=== PATIENT | female | born 1970 | race Caucasian/White ===

== ENCOUNTER 2017-07-29 19:10 | Emergency (ER) | payer OTHER, MEDICAID ==
[2017-07-29 19:30] VITALS: BMI 27.1
--- NOTE | 2017-07-29 20:14 | DR.GENAD ---
HPI - PCP Primary Care Physician: yovany - Complaint/Symptoms Chief Complaint:: chest started feeling funny in the middle of the week. felt like a pinch in mid sternum area that wouldn't let go for awhile. this comes and go's. patient has gradually gotten weaker since the middle of the weak. cannot hold on to things, has very little function of hands. about an hour ago patient nodded off like she fainted and come right back around. patient has had a hard time hearing. Self Treatment fo Chief Complaint: patient started on a new med 07/28/17 loratadine. took today at lunch time . 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 - Family History History of Family Medical Conditions: Yes Family Medical History: Diabetes Mellitus, Cancer, [place], Coronary Artery Disease, Heart Failure, Sudden Cardiac , Hypertension - Social History Does patient currently use any type of tobacco product: Yes Have you used tobacco products in the last 12 months: Yes Type of Tobacco Use: Cigarettes How many years tobacco product used: 30 Does any household member use tobacco: No Alcohol Use: None Do you use any recreational Drugs:: No Lives With: Significant Other Lives Where: Home - infectious screening In the last 2 months have you had wt loss of >10#?: NO Have you had fever, night sweats or hemotysis?: No Have you traveled outside the country in the last 6 months?: No Isolation: Standard ROS - Review of Systems Constitutional: No Symptoms Reported Eyes: No Symptoms Reported ENTM: No Symptoms Reported Respiratoy: No Symptoms Reported Cardiovascular: No Symptoms Reported Gastrointestinal/Abdominal: No Symptoms Reported Genitourinary: No Symptoms Reported Neurological: No Symptoms Reported Musculoskeletal: No Symptoms Reported Integumentary: No Symptoms Reported Hematologic/Lymphatic: No Symptoms Reported Endocrine: No Symptoms Reported, Intolerance to Cold Psychiatric: No Symptoms Reported All Other Systems: Reviewed and Negative PE - Vital Signs Vitals: Temperature 100.1 F Pulse Rate 104 Respiratory Rate 16 Blood Pressure 108/78 O2 Sat by Pulse Oximetry 90 - General General Appearance: Alert - Head Head Exam: Normal Inspection, Atraumatic - Eyes Eye exam: Normal Appearance, PERRL, EOMI - ENT ENT Exam: Normal Exam External Ear Exam: Normal External Inspection TM/Canal Exam: Bilateral Normal Nose Exam: Normal Nose Exam Mouth Exam: Normal Inspection Throat Exam: Normal Inspection - Neck Neck Exam: Normal Inspection, Full ROM - Chest Chest Inspection: Normal Inspection - Respiratory Respiratory Exam: Normal Lung Sounds Bilat Respiratory Exam: Bilateral Clear to Auscultation - Cardiovascular Cardiovascular Exam: Regular Rate, Normal Rhythm - Abdominal Exam Abdominal Exam: Normal Inspection Abdominal Tenderness: negative: RUQ, RLQ, LUQ, LLQ, Epigastrium, Suprapubic, Diffuse, Mild, Moderate, Severe, Other - Extremities Extremities Exam: Normal Inspection, Full ROM - Back Back Exam: Normal Inspection, Full ROM - Neurologic Neurological Exam: Alert, Oriented X3, CN II-XII Intact - Psychiatric Psychiatric Exam: Normal Affect - Skin Skin Exam: Warm, Dry, Intact Course - Reevaluation 1st: Improved ROR - Labs Reviewed Result Diagrams: 07/29/17 20:30 07/29/17 20:30 Laboratory: WBC 6.8 X10^3/uL (3.6-10.0) 07/29/17 20:30 RBC 4.55 X10^6/uL (3.5-5.4) 07/29/17 20:30 Hgb 14.1 g/dL (12.0-16.0) 07/29/17 20:30 Hct 41.8 % (36.0-47.0) 07/29/17 20:30 MCV 91.8 fL (80.0-100.0) 07/29/17 20:30 MCH 31.0 pg (27.0-34.0) 07/29/17 20:30 MCHC 33.8 g/dL (33.0-35.0) 07/29/17 20:30 RDW 14.8 % (11.6-16.5) 07/29/17 20:30 Plt Count 286 X10^3/uL (150.0-450.0) 07/29/17 20:30 MPV 8.3 fL (7.4-11.0) 07/29/17 20:30 Neut % 75.3 % (42.0-75.0) H 07/29/17 20:30 Lymph % 19.1 % (21.0-51.0) L 07/29/17 20:30 [place] % 4.2 % (0.0-13.0) 07/29/17 20:30 Eos % 0.1 % (0.9-2.9) L 07/29/17 20:30 Baso % 1.3 % (0.2-1.0) H 07/29/17 20:30 Neut # 5.1 x10^3/uL (2.2-4.8) H 07/29/17 20:30 Lymph # 1.3 X10^3/uL (1.3-2.9) 07/29/17 20:30 [place] # 0.3 x10^3/uL (0.3-0.8) 07/29/17 20:30 Eos # 0.0 x10^3/uL (0.0-0.2) 07/29/17 20:30 Baso # 0.1 X10^3/uL (0.0-0.1) 07/29/17 20:30 Absolute Nucleated RBC 0.0 /100WBC 07/29/17 20:30 Sample Site Lbra 07/29/17 20:17 ABG pH 7.360 (7.35-7.45) 07/29/17 20: ABG pCO2 38.0 mmHg (35.0-45.0) 07/29/17 20: ABG pO2 109.0 mmHg (80.0-100.0) H 07/29/17 20: ABG HCO3 21.5 mmol/L (22-26) L 07/29/17 20: ABG O2 Saturation 98.0 % (90-100) 07/29/17 20:17 ABG Base Excess -3.6 mmol/L (-2.0-2.0) L 07/29/17 20: Oniel Test Na 07/29/17 20: A-a Gradient 72.0 mmHg 07/29/17 20:17 FiO2 32.000 07/29/17 20:17 Blood Gas Comments Sharita abg well-mtf 07/29/17 20:17 Sodium 141 mmol/L (136-145) 07/29/17 20:30 Corrected Sodium TNP 07/29/17 20: Potassium 2.6 mmol/L (3.5-5.1) L* 07/29/17 20:30 Chloride 103 mmol/L (98-107) 07/29/17 20:30 Carbon Dioxide 23.3 mmol/L (21-32) 07/29/17 20:30 BUN 13 mg/dL (7-18) 07/29/17 20:30 Creatinine 0.82 mg/dL (0.55-1.02) 07/29/17 20:30 Est GFR (MDRD) Af Amer > 60 (>60) 07/29/17 20:30 Est GFR (MDRD) Non-Af > 60 (>60) 07/29/17 20:30 Glucose 73 mg/dL (65-99) 07/29/17 20:30 Calcium 8.8 mg/dL (8.5-10.1) 07/29/17 20:30 Corrected Calcium TNP 07/29/17 20:30 Total Bilirubin 0.20 mg/dL (0.2-1.0) 07/29/17 20:30 AST 28 Units/L (15-37) 07/29/17 20:30 ALT 12 Units/L (12-78) 07/29/17 20:30 Alkaline Phosphatase 84 Units/L (46-116) 07/29/17 20:30 Total Protein 7.2 g/dL (6.4-8.2) 07/29/17 20:30 Albumin 3.6 g/dL (3.4-5.0) 07/29/17 20:30 Globulin 3.6 g/dL (2.5-4.5) 07/29/17 20:30 Albumin/Globulin Ratio 1.0 Ratio (1.1-2.1) L 07/29/17 20:30 - XRAY XRAY Interpreted by: Radiologist (Chest: The heart size is normal, there are patchy right basilar opacities. The remainder or the lungs are clear. No significanrt) - Diagnosis Discharge Problem: Hypokalemia Pneumonia Qualifiers: Pneumonia type: due to unspecified organism Laterality: right Lung location: lower lobe of lung Qualified Code(s): J18.1 - Lobar pneumonia, unspecified organism - Discharge Plan Condition: Stable - Follow ups/Referrals Follow ups/Referrals: Felecia ERNST [Primary Care Provider] - 3 days - Instructions
[2017-07-29 20:37] LABS: BASOPHILS # (AUTO) 0.1 X10^3/uL (0.0-0.1); BASOPHILS % (AUTO) 1.3 % (0.2-1.0); EOSINOPHILS % (AUTO) 0.1 % (0.9-2.9); HEMATOCRIT 41.8 % (36.0-47.0); HEMOGLOBIN 14.1 g/dL (12.0-16.0); LYMPHOCYTES # (AUTO) 1.3 X10^3/uL (1.3-2.9); LYMPHOCYTES % (AUTO) 19.1 % (21.0-51.0); MEAN CORPUSCULAR HGB CONC 33.8 g/dL (33.0-35.0); MEAN CORPUSCULAR VOLUME 91.8 fL (80.0-100.0); MEAN PLATELET VOLUME 8.3 fL (7.4-11.0); MONOCYTES # (AUTO) 0.3 x10^3/uL (0.3-0.8); MONOCYTES % (AUTO) 4.2 % (0.0-13.0); NEUTROPHILS # (AUTO) 5.1 x10^3/uL (2.2-4.8); NEUTROPHILS % (AUTO) 75.3 % (42.0-75.0); PLATELET COUNT 286 X10^3/uL (150.0-450.0); RED BLOOD COUNT 4.55 X10^6/uL (3.5-5.4); RED CELL DISTRIBUTION WIDTH 14.8 % (11.6-16.5); WHITE BLOOD COUNT 6.8 X10^3/uL (3.6-10.0)
[2017-07-29 20:37] LABS: ABG BASE EXCESS -3.6 mmol/L (-2.0-2.0); ABG HCO3 21.5 mmol/L (22-26)
[2017-07-29 20:44] LABS: BLOOD UREA NITROGEN 13 mg/dL (7-18); CALCIUM 8.8 mg/dL (8.5-10.1); CARBON DIOXIDE 23.3 mmol/L (21-32); CHLORIDE 103 mmol/L (98-107); CREATININE 0.82 mg/dL (0.55-1.02); SODIUM 141 mmol/L (136-145); eGFR BLACK RACES > 60 (>60); eGFR NON BLACK RACES > 60 (>60)
[2017-07-29 20:51] LABS: ALANINE AMINOTRANSFERASE 12 Units/L (12-78); ALBUMIN 3.6 g/dL (3.4-5.0); ALKALINE PHOSPHATASE 84 Units/L (46-116); ASPARTATE AMINO TRANSFERASE 28 Units/L (15-37); TOTAL PROTEIN 7.2 g/dL (6.4-8.2)
[2017-07-29] MEDS ORDERED: K-LYTE EFFERVESCENT ONE (21:32)
[2017-07-29] MEDS ORDERED: K-LYTE EFFERVESCENT PO SCH (21:36)
--- NOTE | 2017-07-29 21:47 | RAD ---
Chest, one-view Indication: Hypoxic Comparison: 03/05/2016 Findings: The heart size is normal. There are patchy right basilar opacities. The remainder of the miguel ángel ngs are clear. No significant pleural effusion or pneumothorax is identified. No acute osseous abnorm ality is seen. Impression: Patchy right basilar opacities, suspicious for pneumonia. Clinical correlation and follow-up to compl ete resolution recommended. Reported By:
[2017-07-29] MEDS ORDERED: K-DUR TAB 20 MEQ PO ONE (23:08)
[2017-07-29] MEDS ORDERED: K-DUR TAB 20 MEQ PO SCH (23:19)
[2017-07-30 04:11] VITALS: BP 116/72
[2017-07-30] MEDS ORDERED: K-DUR TAB 20 MEQ PO SCH (09:00)
[2017-07-30] MEDS ORDERED: K-LYTE EFFERVESCENT PO SCH (09:00)
== END 2017-07-29 23:33 | disposition home or self-care (01) ==
LOC: ER 19:37
DX: J18.1 Lobar pneumonia, unspecified organism (principal); E87.6 Hypokalemia
CPT/HCPCS: 36415; 36600; 71010; 80053; 82803; 85025; 99283

== ENCOUNTER → 2017-09-15 | Outpatient (CLI) | payer OTHER, MEDICAID ==
[2017-07-30 04:11] VITALS: BP 116/72
[~2017-09-15] MED LIST: NS 100 ML IV 100 ML IV ONE
--- NOTE | 2017-09-15 12:38 | RAD ---
HISTORY: Lower abdominal pain. Hypokalemia. Back pain. Study: Acute abdominal series: PA chest with supine and upright abdominal views submitted. Comparison: 03/05/2016, 07/29/2017 Findings: The lungs are clear. The heart size is normal. No acute bony abnormalities are identified. Examination of the abdomen reveals scattered large small bowel gas. No evidence of bowel obstruction or pneumoperitoneum is noted. Oral contrast is noted within the small bowel and colon from CT scan done the same date. This partially obscures bony structures and moderately obscures the kidneys. Sm all calcifications present in the anatomic pelvis felt represent phleboliths. No definite acute bony abnormalities are identified. IMPRESSION: 1. No radiographic evidence of acute cardiopulmonary disease or significant change is noted when com pared to the prior acute abdominal series 2. I see no evidence of bowel obstruction or pneumoperitoneum. Reported By:
--- NOTE | 2017-09-15 12:44 | CT ---
CT abdomen and pelvis with contrast Indication: Lower abdominal and back pain Technique: Helical CT images of the abdomen and pelvis were obtained with IV contrast. Reformatted im ages in the coronal and sagittal planes were also generated for review. Comparison: None Findings: Visualized lung bases are clear. Right L5 pars defect is noted without significant associat ed spondylolisthesis. No aggressive osseous lesions are identified. The liver, gallbladder, spleen, pancreas, adrenals and kidneys are unremarkable. There is a small sliding hiatal hernia with mild thickening of the distal esophagus. There is mild mu ral thickening and mucosal enhancement of the gastric antrum without discrete ulcer or mass identifie d. There is mild colonic diverticulosis without CT evidence of acute diverticulitis. The appendix is normal. No bowel obstruction identified. The abdominal aorta is mildly calcified without aneurysm. The urinary bladder is normal. The uterus a nd adnexa are grossly within normal limits. No free air, free fluid or lymphadenopathy is identified. Impression: Mural thickening and mucosal enhancement of the gastric antrum, suggestive for gastritis. Underlying neoplasm is not excluded and endoscopy should be considered for further evaluation, as clinically war ranted. Small hiatal hernia with mild thickening of the distal esophagus. This can also be further evaluated with endoscopy. Please see above report for additional incidental findings. Reported By:
== END ==
LOC: RAD 10:42
PROVIDERS: ATTEND Psychiatry & Neurology Neurology
DX: E87.6 Hypokalemia (principal); Z87.01 Personal history of pneumonia (recurrent); E28.319 Asymptomatic premature menopause; I10 Essential (primary) hypertension; R10.84 Generalized abdominal pain; R10.813 Right lower quadrant abdominal tenderness
CPT/HCPCS: 74022; 74178; A4222

== ENCOUNTER 2017-09-21 10:13 | Emergency (ER) | payer OTHER, MEDICAID ==
--- NOTE | 2017-09-21 10:24 | DR.GENAD ---
HPI - PCP Primary Care Physician: Lisa - Complaint/Symptoms Chief Complaint Doctors Comments: Patient presented to the ED for evaluation of patient who had fallen off the commode according family member. She did not hit her head, there was no emesis on the floor, there was no abnormal movements. Patient has been unresponsive since arrival. Primary survey is without evidence of trauma. With stimulation patient states that she went to urinate and fell when trying to pull up clothing. She admits to taking her nerves medication ( xanax) prior to bedtime. 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 - Family History Family Medical History: Diabetes Mellitus, Cancer, [place], Coronary Artery Disease, Heart Failure, Sudden Cardiac , Hypertension - Social History Do you use any recreational Drugs:: No ROS - Review of Systems Constitutional: See HPI Eyes: No Symptoms Reported ENTM: No Symptoms Reported Respiratoy: No Symptoms Reported Cardiovascular: No Symptoms Reported Gastrointestinal/Abdominal: No Symptoms Reported Genitourinary: No Symptoms Reported Neurological: Other (altered mental state) Musculoskeletal: No Symptoms Reported Integumentary: No Symptoms Reported Hematologic/Lymphatic: No Symptoms Reported Endocrine: No Symptoms Reported Psychiatric: No Symptoms Reported All Other Systems: Reviewed and Negative Unable to Obtain Due To: Altered mental status PE - Vital Signs Vitals: Temperature 97.4 F Pulse Rate [Right Brachial] 86 Pulse Rate 87 Respiratory Rate 16 Blood Pressure [Right Arm] 104/59 Blood Pressure [Left Arm] 116/72 Blood Pressure 108/67 O2 Sat by Pulse Oximetry 95 - General General Appearance: Lethargic - Head Head Exam: Normal Inspection, Atraumatic - Eyes Eye exam: Normal Appearance, PERRL, EOMI, Mydrasis - ENT ENT Exam: Normal Oropharynx External Ear Exam: Normal External Inspection TM/Canal Exam: Bilateral Normal Nose Exam: Normal Nose Exam Mouth Exam: Normal Inspection Throat Exam: Normal Inspection - Neck Neck Exam: Normal Inspection - Chest Chest Inspection: Normal Inspection - Respiratory Respiratory Exam: Normal Lung Sounds Bilat Respiratory Exam: Bilateral Clear to Auscultation - Cardiovascular Cardiovascular Exam: Regular Rate, Normal Rhythm - Abdominal Exam Abdominal Exam: Normal Inspection Abdominal Tenderness: negative: RUQ, RLQ, LUQ, LLQ, Epigastrium, Suprapubic, Diffuse, Mild, Moderate, Severe, Other - Extremities Extremities Exam: Normal Inspection - Back Back Exam: Normal Inspection - Neurologic Neurological Exam: Alert, Oriented X3, CN II-XII Intact - Psychiatric Psychiatric Exam: Depressed - Skin Skin Exam: Warm, Dry, Intact Course - Reevaluation 1st: Unchanged - Consultation Called: 13:50 (Dr Frazier agreed to admit for further evaluation) ROR - Labs Reviewed Result Diagrams: 09/21/17 11:10 09/21/17 11:10 Laboratory: WBC 6.4 X10^3/uL (3.6-10.0) 09/21/17 11:10 RBC 4.54 X10^6/uL (3.5-5.4) 09/21/17 11:10 Hgb 13.9 g/dL (12.0-16.0) 09/21/17 11:10 Hct 42.1 % (36.0-47.0) 09/21/17 11:10 MCV 92.9 fL (80.0-100.0) 09/21/17 11:10 MCH 30.7 pg (27.0-34.0) 09/21/17 11:10 MCHC 33.0 g/dL (33.0-35.0) 09/21/17 11:10 RDW 14.8 % (11.6-16.5) 09/21/17 11:10 Plt Count 341 X10^3/uL (150.0-450.0) 09/21/17 11:10 MPV 8.3 fL (7.4-11.0) 09/21/17 11:10 Neut % 73.1 % (42.0-75.0) 09/21/17 11:10 Lymph % 20.4 % (21.0-51.0) L 09/21/17 11:10 [place] % 5.5 % (0.0-13.0) 09/21/17 11:10 Eos % 0.3 % (0.9-2.9) L 09/21/17 11:10 Baso % 0.7 % (0.2-1.0) 09/21/17 11:10 Neut # 4.7 x10^3/uL (2.2-4.8) 09/21/17 11:10 Lymph # 1.3 X10^3/uL (1.3-2.9) 09/21/17 11:10 [place] # 0.3 x10^3/uL (0.3-0.8) 09/21/17 11:10 Eos # 0.0 x10^3/uL (0.0-0.2) 09/21/17 11:10 Baso # 0.0 X10^3/uL (0.0-0.1) 09/21/17 11:10 Absolute Nucleated RBC 0.0 /100WBC 09/21/17 11:10 Sample Site Rra 09/21/17 13:10 ABG pH 7.350 (7.35-7.45) 09/21/17 13:10 ABG pCO2 41.0 mmHg (35.0-45.0) 09/21/17 13:10 ABG pO2 87.0 mmHg (80.0-100.0) 09/21/17 13:10 ABG HCO3 22.6 mmol/L (22-26) 09/21/17 13:10 ABG O2 Saturation 96.0 % (90-100) 09/21/17 13:10 ABG Base Excess -2.9 mmol/L (-2.0-2.0) L 09/21/17 13:10 Oniel Test Pos 09/21/17 13:10 A-a Gradient 61.0 mmHg 09/21/17 13:10 FiO2 28.000 09/21/17 13:10 Blood Gas Comments Sharita well cs 09/21/17 13:10 Sodium 141 mmol/L (136-145) 09/21/17 11:10 Corrected Sodium TNP 09/21/17 11:10 Potassium 3.4 mmol/L (3.5-5.1) L 09/21/17 11:10 Chloride 106 mmol/L (98-107) 09/21/17 11:10 Carbon Dioxide 22.5 mmol/L (21-32) 09/21/17 11:10 BUN 10 mg/dL (7-18) 09/21/17 11:10 Creatinine 0.62 mg/dL (0.55-1.02) 09/21/17 11:10 Est GFR (MDRD) Af Amer > 60 (>60) 09/21/17 11:10 Est GFR (MDRD) Non-Af > 60 (>60) 09/21/17 11:10 Glucose 89 mg/dL (65-99) 09/21/17 11:10 POC Glucose (mg/dL) 82 mg/dL (65-99) 09/21/17 13:00 Calcium 8.1 mg/dL (8.5-10.1) L 09/21/17 11:10 Corrected Calcium TNP 09/21/17 11:10 Total Bilirubin 0.40 mg/dL (0.2-1.0) 09/21/17 11:10 AST 15 Units/L (15-37) 09/21/17 11:10 ALT 7 Units/L (12-78) L 09/21/17 11:10 Alkaline Phosphatase 67 Units/L (46-116) 09/21/17 11:10 Creatine Kinase 47 Units/L (26-192) 09/21/17 11:10 CK-MB (CK-2) < 1.0 ng/mL (0-4.0) 09/21/17 11:10 CK/CKMB % Calc 2.1 % (<4) 09/21/17 11:10 Troponin I < 0.02 ng/mL (0-1.5) 09/21/17 11:10 Total Protein 7.2 g/dL (6.4-8.2) 09/21/17 11:10 Albumin 3.7 g/dL (3.4-5.0) 09/21/17 11:10 Globulin 3.5 g/dL (2.5-4.5) 09/21/17 11:10 Albumin/Globulin Ratio 1.1 Ratio (1.1-2.1) 09/21/17 11:10 Specimen Type Catherized urine 09/21/17 11:25 Urine Color Yellow (YELLOW) 09/21/17 11:25 Urine Appearance Clear (CLEAR) 09/21/17 11:25 Urine pH 5.0 (5.0 - 8.0) 09/21/17 11:25 Ur Specific [place] 1.015 (1.000-1.030) 09/21/17 11:25 Urine Protein 1+ (NEGATIVE) 09/21/17 11:25 Urine Glucose (UA) Negative (NEGATIVE) 09/21/17 11:25 Urine Ketones 3+ (NEGATIVE) 09/21/17 11:25 Urine Occult Blood Negative (NEGATIVE) 09/21/17 11:25 Urine Nitrite Negative (NEGATIVE) 09/21/17 11:25 Urine Bilirubin Negative (NEGATIVE) 09/21/17 11:25 Urine Urobilinogen Normal (NORMAL) 09/21/17 11:25 Ur Leukocyte Esterase Negative (NEGATIVE) 09/21/17 11:25 Urine RBC 0-1 /HPF (NEGATIVE) 09/21/17 11:25 Urine WBC 0-1 /HPF (NEGATIVE) 09/21/17 11:25 Ur Squamous Epith Cells Few /HPF (NEGATIVE) 09/21/17 11:25 Urine Bacteria Trace /HPF (NEGATIVE) 09/21/17 11:25 Ur Culture Indicated? No/not indicated 09/21/17 11:25 Urine Opiates Screen Negative (NEG=<300) 09/21/17 11:25 Urine Methadone Screen Negative (NEG=<300) 09/21/17 11:25 Ur Barbiturates Screen Negative (NEG=<200) 09/21/17 11:25 Ur Phencyclidine Scrn Negative (NEG=<25) 09/21/17 11:25 Ur Amphetamines Screen Negative (NEG=<1000) 09/21/17 11:25 U Benzodiazepines Scrn Positive (NEG=<200) A 09/21/17 11:25 Urine Cocaine Screen Negative (NEG=<300) 09/21/17 11:25 U Marijuana (THC) Screen Negative (NEG=<50) 09/21/17 11:25 - XRAY XRAY Interpreted by: Radiologist (Brain CT: No acute abnormality) - Diagnosis Discharge Problem: Altered mental state Qualifiers: Altered mental status type: stupor Qualified Code(s): R40.1 - Stupor - Discharge Plan Condition: Stable - Follow ups/Referrals Follow ups/Referrals: Felecia ERNST [Primary Care Provider] - 3 days - Instructions
[2017-09-21] MEDS ORDERED: NARCAN INJ IVP ONE (10:35)
[2017-09-21] MEDS: NS 1000 ML 1,000 ML IV SCH (10:53)
[2017-09-21] MEDS ORDERED: NARCAN INJ ONE (10:56)
--- NOTE | 2017-09-21 11:05 | CT ---
History: Syncope this morning with altered mental status Study: CT head without contrast. Sagittal and coronal reformations were provided. Comparison: None Findings: The ventricles and sulci are normal in size and configuration without mass effect. There is no intracranial hemorrhage or mass or edema or subdural collection of fluid. The calvarium is intact . The paranasal sinuses and mastoid sinuses are clear. Impression: No evidence for acute intracranial disease Reported By:
[2017-09-21 11:26] LABS: BASOPHILS % (AUTO) 0.7 % (0.2-1.0); EOSINOPHILS % (AUTO) 0.3 % (0.9-2.9); HEMATOCRIT 42.1 % (36.0-47.0); HEMOGLOBIN 13.9 g/dL (12.0-16.0); LYMPHOCYTES # (AUTO) 1.3 X10^3/uL (1.3-2.9); LYMPHOCYTES % (AUTO) 20.4 % (21.0-51.0); MEAN CORPUSCULAR HEMOGLOBIN 30.7 pg (27.0-34.0); MEAN CORPUSCULAR VOLUME 92.9 fL (80.0-100.0); MEAN PLATELET VOLUME 8.3 fL (7.4-11.0); MONOCYTES # (AUTO) 0.3 x10^3/uL (0.3-0.8); MONOCYTES % (AUTO) 5.5 % (0.0-13.0); NEUTROPHILS # (AUTO) 4.7 x10^3/uL (2.2-4.8); NEUTROPHILS % (AUTO) 73.1 % (42.0-75.0); PLATELET COUNT 341 X10^3/uL (150.0-450.0); RED BLOOD COUNT 4.54 X10^6/uL (3.5-5.4); RED CELL DISTRIBUTION WIDTH 14.8 % (11.6-16.5); WHITE BLOOD COUNT 6.4 X10^3/uL (3.6-10.0)
[2017-09-21 11:35] LABS: ALANINE AMINOTRANSFERASE 7 Units/L (12-78); ALBUMIN 3.7 g/dL (3.4-5.0); ALKALINE PHOSPHATASE 67 Units/L (46-116); ASPARTATE AMINO TRANSFERASE 15 Units/L (15-37); BLOOD UREA NITROGEN 10 mg/dL (7-18); CALCIUM 8.1 mg/dL (8.5-10.1); CARBON DIOXIDE 22.5 mmol/L (21-32); CHLORIDE 106 mmol/L (98-107); CREATININE 0.62 mg/dL (0.55-1.02); SODIUM 141 mmol/L (136-145); TOTAL PROTEIN 7.2 g/dL (6.4-8.2); eGFR BLACK RACES > 60 (>60); eGFR NON BLACK RACES > 60 (>60)
[2017-09-21 11:37] LABS: BILIRUBIN,URINE NEGATIVE (NEGATIVE); BLOOD/HEMOGLOBIN,URINE NEGATIVE (NEGATIVE); GLUCOSE, URINE NEGATIVE (NEGATIVE); KETONES,URINE 3+ (NEGATIVE); LEUKOCYTE ESTERASE ,URINE NEGATIVE (NEGATIVE); NITRITES,URINE NEGATIVE (NEGATIVE); PROTEIN,URINE 1+ (NEGATIVE); UROBILINOGEN,URINE NORMAL (NORMAL)
[2017-09-21 11:48] LABS: APPEARANCE,URINE CLEAR (CLEAR); BACTERIA,URINE TRACE /HPF (NEGATIVE); COLOR,URINE YELLOW (YELLOW); RBC,URINE 0-1 /HPF (NEGATIVE); SQUAMOUS EPITHELIAL CELL,UR FEW /HPF (NEGATIVE)
[2017-09-21 13:17] LABS: ABG BASE EXCESS -2.9 mmol/L (-2.0-2.0); ABG HCO3 22.6 mmol/L (22-26)
[2017-09-21 13:18] LABS: ABG ALLEN TEST POS
[2017-09-21 13:25] LABS: CKMB % 2.1 % (<4); CREATINE KINASE 47 Units/L (26-192); CREATINE KINASE MB < 1.0 ng/mL (0-4.0); TROPONIN I < 0.02 ng/mL (0-1.5)
[2017-09-21] MEDS ORDERED: ROMAZICON INJ 0.5 MG IVP ONE ×2 (13:51→14:05)
[2017-09-21] MEDS: NS 1000 ML 1,000 ML with POTASSIUM CHLORIDE INJ 20 MEQ VIAL 20 MEQ IV SCH ×4 (15:18→23:40)
[2017-09-21 17:03] VITALS: BMI 23.5
[2017-09-22] MEDS: NS 1000 ML 1,000 ML IV SCH ×2 (05:43→06:41)
[2017-09-22 06:18] LABS: BASOPHILS % (AUTO) 0.6 % (0.2-1.0); EOSINOPHILS % (AUTO) 0.9 % (0.9-2.9); HEMATOCRIT 37.1 % (36.0-47.0); HEMOGLOBIN 12.3 g/dL (12.0-16.0); LYMPHOCYTES # (AUTO) 2.3 X10^3/uL (1.3-2.9); LYMPHOCYTES % (AUTO) 48.8 % (21.0-51.0); MEAN CORPUSCULAR HEMOGLOBIN 30.9 pg (27.0-34.0); MEAN CORPUSCULAR HGB CONC 33.1 g/dL (33.0-35.0); MEAN CORPUSCULAR VOLUME 93.3 fL (80.0-100.0); MEAN PLATELET VOLUME 8.4 fL (7.4-11.0); MONOCYTES # (AUTO) 0.4 x10^3/uL (0.3-0.8); MONOCYTES % (AUTO) 8.7 % (0.0-13.0); PLATELET COUNT 259 X10^3/uL (150.0-450.0); RED BLOOD COUNT 3.98 X10^6/uL (3.5-5.4); RED CELL DISTRIBUTION WIDTH 14.8 % (11.6-16.5); WHITE BLOOD COUNT 4.8 X10^3/uL (3.6-10.0)
[2017-09-22 06:41] LABS: ALANINE AMINOTRANSFERASE 11 Units/L (12-78); ALBUMIN 2.8 g/dL (3.4-5.0); ALKALINE PHOSPHATASE 45 Units/L (46-116); ASPARTATE AMINO TRANSFERASE 15 Units/L (15-37); BLOOD UREA NITROGEN 7 mg/dL (7-18); CALCIUM 7.9 mg/dL (8.5-10.1); CARBON DIOXIDE 23.7 mmol/L (21-32); CHLORIDE 110 mmol/L (98-107); COR CA(FOR HYPOALB) 8.9 mg/dL (8.5-10.1); COR NA(FOR HYPERGLY) 143 mmol/L (136-145); CREATININE 0.61 mg/dL (0.55-1.02); SODIUM 143 mmol/L (136-145); TOTAL PROTEIN 5.5 g/dL (6.4-8.2); eGFR BLACK RACES > 60 (>60); eGFR NON BLACK RACES > 60 (>60)
[2017-09-22] MEDS ORDERED: NORVASC TAB 10 MG PO SCH (09:00)
[2017-09-22] MEDS ORDERED: NexIUM PO SCH (09:00)
[2017-09-22 12:12] VITALS: BP 125/58
== END 2017-09-22 14:25 | disposition home or self-care (01) | DRG 81 ==
LOC: ER 10:17 → OBS 14:17
PROVIDERS: ADMIT Internal Medicine; ATTEND Internal Medicine
DX: R40.1 Stupor (principal); I10 Essential (primary) hypertension; R94.31 Abnormal electrocardiogram [ECG] [EKG]; T50.901A Poisoning by unspecified drugs, medicaments and biological substances, accidental (unintentional), initial encounter
CPT/HCPCS: 36415; 36600; 70450; 80053; 80307; 81001; 82550; 82553; 82803; 84484; 85025; 93005; 93010; 94760; 96365; 96367; 96374; 96375; 99284; A4216; G0378; G0434; J2310; J3480; J3490

== ENCOUNTER 2018-03-22 15:41 | Observation (INO) ==
[2018-03-22] MEDS ORDERED: ZOFRAN INJ 4 MG VIAL IVP PRN (17:34)
[2018-03-22 17:53] VITALS: BMI 21.1
[2018-03-22] MEDS: D5 1/2 NS 1000 ML 1,000 ML IV SCH (18:01)
[2018-03-22] MEDS: PROTONIX INJ 40 MG VIAL IVP SCH (18:01)
[2018-03-22 18:24] LABS: AMYLASE 74 Units/L (25-115); LIPASE 205 Units/L (73-393)
[2018-03-22] MEDS: DILAUDID INJ IVP PRN (22:28)
[2018-03-22 23:24] LABS: BASOPHILS # (AUTO) 0.1 X10^3/uL (0.0-0.1); BASOPHILS % (AUTO) 1.3 % (0.2-1.0); EOSINOPHILS # (AUTO) 0.3 x10^3/uL (0.0-0.2); EOSINOPHILS % (AUTO) 3.1 % (0.9-2.9); HEMATOCRIT 42.7 % (36.0-47.0); HEMOGLOBIN 14.5 g/dL (12.0-16.0); LYMPHOCYTES # (AUTO) 1.9 X10^3/uL (1.3-2.9); LYMPHOCYTES % (AUTO) 23.5 % (21.0-51.0); MEAN CORPUSCULAR HGB CONC 33.9 g/dL (33.0-35.0); MEAN CORPUSCULAR VOLUME 97.5 fL (80.0-100.0); MEAN PLATELET VOLUME 9.3 fL (7.4-11.0); MONOCYTES # (AUTO) 0.7 x10^3/uL (0.3-0.8); MONOCYTES % (AUTO) 8.2 % (0.0-13.0); NEUTROPHILS # (AUTO) 5.2 x10^3/uL (2.2-4.8); NEUTROPHILS % (AUTO) 63.9 % (42.0-75.0); PLATELET COUNT 381 X10^3/uL (150.0-450.0); RED BLOOD COUNT 4.38 X10^6/uL (3.5-5.4); RED CELL DISTRIBUTION WIDTH 13.5 % (11.6-16.5); WHITE BLOOD COUNT 8.2 X10^3/uL (3.6-10.0)
[2018-03-22 23:32] LABS: ALANINE AMINOTRANSFERASE 46 Units/L (12-78); ALBUMIN 3.4 g/dL (3.4-5.0); ALKALINE PHOSPHATASE 142 Units/L (46-116); ASPARTATE AMINO TRANSFERASE 126 Units/L (15-37); BLOOD UREA NITROGEN 4 mg/dL (7-18); CARBON DIOXIDE 27.4 mmol/L (21-32); CHLORIDE 103 mmol/L (98-107); CREATININE 0.55 mg/dL (0.55-1.02); SODIUM 137 mmol/L (136-145); TOTAL PROTEIN 6.6 g/dL (6.4-8.2); eGFR NON BLACK RACES > 60 (>60)
[2018-03-23] MEDS: D5 1/2 NS 1000 ML 1,000 ML IV SCH ×3 (01:16→18:16)
[2018-03-23] MEDS: DILAUDID INJ IVP PRN ×5 (03:38→22:24)
--- NOTE | 2018-03-23 08:34 | DR.PROGNOT ---
Hospital Progress Notes - Progress Note for Day of: Progress Note Date: 03/23/18 - Chief Complaint Chief Complaint: still c/o moderate to severe epigastric pain , no nausea or vomiting . abdominal CT showed mass in the head of the pancreas which was not present on the CT done early this year . EGD two months ago showed hiatal hernia according to the Pt . Lab work WNL. - Past Medical Family Social History Past Med/Fam/Surg Hx: No changes since H&P Allergies: Allergies codeine Allergy (Verified 03/04/18 07:23) tramadol Allergy (Verified 03/04/18 07:23) - Review Of Systems ROS: No change since H&P - Vital Signs Vital Signs: Temperature 98.1 F Pulse Rate [Right Brachial] 86 Respiratory Rate 16 Blood Pressure [Right Arm] 119/73 Blood Pressure [Left Arm] 120/84 Blood Pressure 110/68 O2 Sat by Pulse Oximetry 97 - Physical Exam Oriented: Normal Eyes: Normal Ear: Normal Nose: Normal Throat: Normal Respiratory: Normal Cardiovascular: Normal : Normal GI:Auscultation: Normal GI:Palpation: Normal GI: Tenderness: Epigastric, Moderate Skin: Normal Musculoskeletal: Normal Psychiatric: Normal Speech Pattern: Clear, Appropriate - Laboratory and Diagnostics Result Diagrams: 03/22/18 18:04 03/22/18 18:04 Labs: Laboratory WBC 8.2 X10^3/uL (3.6-10.0) 03/22/18 18:04 RBC 4.38 X10^6/uL (3.5-5.4) 03/22/18 18:04 Hgb 14.5 g/dL (12.0-16.0) 03/22/18 18:04 Hct 42.7 % (36.0-47.0) 03/22/18 18:04 MCV 97.5 fL (80.0-100.0) 03/22/18 18:04 MCH 33.0 pg (27.0-34.0) 03/22/18 18: MCHC 33.9 g/dL (33.0-35.0) 03/22/18 18:04 RDW 13.5 % (11.6-16.5) 03/22/18 18:04 Plt Count 381 X10^3/uL (150.0-450.0) 03/22/18 18:04 MPV 9.3 fL (7.4-11.0) 03/22/18 18:04 Neut % (Auto) 63.9 % (42.0-75.0) 03/22/18 18:04 Lymph % (Auto) 23.5 % (21.0-51.0) 03/22/18 18:04 [place] % (Auto) 8.2 % (0.0-13.0) 03/22/18 18:04 Eos % (Auto) 3.1 % (0.9-2.9) H 03/22/18 18:04 Baso % (Auto) 1.3 % (0.2-1.0) H 03/22/18 18:04 Neut # (Auto) 5.2 x10^3/uL (2.2-4.8) H 03/22/18 18:04 Lymph # (Auto) 1.9 X10^3/uL (1.3-2.9) 03/22/18 18:04 [place] # (Auto) 0.7 x10^3/uL (0.3-0.8) 03/22/18 18:04 Eos # (Auto) 0.3 x10^3/uL (0.0-0.2) H 03/22/18 18:04 Baso # (Auto) 0.1 X10^3/uL (0.0-0.1) 03/22/18 18:04 Absolute Nucleated RBC 0.0 /100WBC 03/22/18 18:04 Sodium 137 mmol/L (136-145) 03/22/18 18:04 Corrected Sodium TNP 03/22/18 18:04 Potassium 4.0 mmol/L (3.5-5.1) 03/22/18 18:04 Chloride 103 mmol/L (98-107) 03/22/18 18:04 Carbon Dioxide 27.4 mmol/L (21-32) 03/22/18 18:04 BUN 4 mg/dL (7-18) L 03/22/18 18:04 Creatinine 0.55 mg/dL (0.55-1.02) 03/22/18 18:04 Est GFR (MDRD) Af Amer > 60 (>60) 03/22/18 18:04 Est GFR (MDRD) Non-Af > 60 (>60) 03/22/18 18:04 Glucose 95 mg/dL (65-99) 03/22/18 18:04 Calcium 9.0 mg/dL (8.5-10.1) 03/22/18 18:04 Corrected Calcium TNP 03/22/18 18:04 Total Bilirubin 0.50 mg/dL (0.2-1.0) 03/22/18 18:04 AST 126 Units/L (15-37) H 03/22/18 18:04 ALT 46 Units/L (12-78) 03/22/18 18:04 Alkaline Phosphatase 142 Units/L (46-116) H 03/22/18 18:04 Total Protein 6.6 g/dL (6.4-8.2) 03/22/18 18:04 Albumin 3.4 g/dL (3.4-5.0) 03/22/18 18:04 Globulin 3.2 g/dL (2.5-4.5) 03/22/18 18:04 Albumin/Globulin Ratio 1.1 Ratio (1.1-2.1) 03/22/18 18:04 Amylase 74 Units/L (25-115) 03/22/18 18:04 Lipase 205 Units/L (73-393) 03/22/18 18:04 - Assessment and Plan 1: abdominal pain . 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 recent Lap Amanda . abdominal adhesions. chronic back pain . will obtain the old EGD report .CEA and Ca 19-9. pancreatic US. maybe repeat EGD as Out Pt
[2018-03-23] MEDS: PROTONIX INJ 40 MG VIAL IVP SCH (08:40)
[2018-03-23] MEDS ORDERED: NS 100 ML IV 100 ML IV ONE (12:54)
--- NOTE | 2018-03-23 16:21 | CT ---
CT ABDOMEN AND PELVIS WITH ORAL AND IV CONTRAST CLINICAL HISTORY: 47-year-old female status post laparoscopic cholecystectomy with acute onset upper epigastric pain seen at outside facility with CT scan and resultant diagnosis of pancreatic head mass . COMPARISON: CT abdomen pelvis 09/15/2017. TECHNIQUE: Multiple contiguous axial images were obtained prior to and following the administration o f intravenous and oral contrast in the arterial and portal venous phases. Images were reformatted in the coronal and sagittal planes. FINDINGS: The lung bases are clear without pulmonary nodules, masses, or pleural fluid collections. Bibasilar subsegmental dependent atelectasis. The inferior imaged heart is normal in size and there is no peric ardial effusion. Liver and spleen are unremarkable. Status post cholecystectomy. Scattered foci of low-attenuation within the edematous head and uncinate process of the pancreas (nick suring 2.4 x 3.0 x 2.6 cm in the AP, transverse and craniocaudad dimension) that is inseparable from the inflamed, wall thickened C-loop of the duodenum with edema and inflammation extending to the body of the pancreas and into the gallbladder fossa. No discrete fluid collection. No postcontrast enhanc ement of regions of low attenuation within the pancreatic head and uncinate process. Small volume flu id gallbladder fossa. The adrenal glands are normal bilaterally. The kidneys perfuse in a normal fashion and the ureters r un in an unobstructed course to a well distended urinary bladder. The uterus is anteverted and normal in size. The ovaries, perineum and vagina are within normal limi ts. Pelvic phleboliths are present. Oral contrast reaches the cecum. The remaining bowel is without obstruction or inflammation and there is no free fluid or free air within the peritoneal cavity. Appendix is normal. There are no patholo gically enlarged lymph nodes in the abdomen or pelvis. The arteriovascular structures are within normal limits. Soft tissues are normal. The osseous structures are intact without fracture or malalignment. IMPRESSION: 1. Patchy regions of low attenuation within the head and uncinate process of the pancreas with associ ated edema and mild inflammatory change that are contiguous with wall thickened inflamed C-loop of th e duodenum with surrounding edema extending into the body of the pancreas and gallbladder fossa, whic h contains a small amount of non organized fluid. No definitive rim enhancing fluid collection to sug gest abscess. Constellation of findings may represent necrotizing pancreatitis (sterile necrosis), in fected necrosis, pancreatic pseudocyst and possible pancreatic laceration which is much less likely. Bile leak not excluded. Correlate clinically and with serology. Continued close clinical and imaging follow-up. 2. No other acute intra-abdominal intrapelvic process. Reported By:
[2018-03-24] MEDS: D5 1/2 NS 1000 ML 1,000 ML IV SCH (01:54)
[2018-03-24] MEDS: DILAUDID INJ IVP PRN (04:25)
[2018-03-24] MEDS: PROTONIX INJ 40 MG VIAL IVP SCH (08:32)
[2018-03-24 12:12] VITALS: BP 121/78
== END 2018-03-24 13:10 | disposition home or self-care (01) ==
LOC: MED/SURG
PROVIDERS: ADMIT Surgery; ATTEND Surgery
DX: R10.84 Generalized abdominal pain; M13.89 Other specified arthritis, multiple sites; D37.8 Neoplasm of uncertain behavior of other specified digestive organs; K86.89 Other specified diseases of pancreas; Z90.49 Acquired absence of other specified parts of digestive tract; F41.8 Other specified anxiety disorders; I10 Essential (primary) hypertension; R97.0 Elevated carcinoembryonic antigen [CEA]; K44.9 Diaphragmatic hernia without obstruction or gangrene; R74.0 Nonspecific elevation of levels of transaminase and lactic acid dehydrogenase [LDH]
CPT/HCPCS: 36415; 74177; 80053; 82150; 82378; 83690; 85025; 86301; 86316; 94760; C9113; G0378; J1170; J7050; S5010